=== PATIENT | male | born 1975 | race Caucasian/White ===

== ENCOUNTER 2023-08-01 07:36 | Emergency (ER) | payer BC ==
[2023-08-01] MEDS ORDERED: Lidocaine 1% with EPINEPHrine 1:200,000 30 ML SDV ONE (08:05)
[2023-08-01] MEDS ORDERED: Lidocaine 1% with EPINEPHrine 1:200,000 30 ML SDV INJECT ONE (08:19)
== END 2023-08-01 08:57 | disposition home or self-care (01) ==
LOC: MW.ED 07:36
DX: L05.01 Pilonidal cyst with abscess (principal); E78.00 Pure hypercholesterolemia, unspecified; Z79.899 Other long term (current) drug therapy; Z88.6 Allergy status to analgesic agent; Z88.5 Allergy status to narcotic agent
CPT/HCPCS: 10080; 99283; J3490; 10060